=== PATIENT | male | born 1975 | race Caucasian/White ===

== ENCOUNTER 2020-09-10 10:03 | Outpatient (REF) | payer OTHER, SELFPAY | END 2020-09-10 10:04 | disposition home or self-care (01) | LOC: HO.BBR 10:03 | PROVIDERS: Visit Provider Internal Medicine | DX: Z13.89 Encounter for screening for other disorder (principal) ==

== ENCOUNTER 2020-12-17 10:12 | Outpatient (REF) | payer OTHER, SELFPAY | END 2020-12-17 10:13 | disposition home or self-care (01) | LOC: HO.BBR 10:12 | PROVIDERS: Visit Provider Internal Medicine | DX: Z13.89 Encounter for screening for other disorder (principal) ==

== ENCOUNTER 2021-03-25 10:10 | Outpatient (REF) | payer OTHER, SELFPAY | END 2021-03-25 10:11 | disposition home or self-care (01) | LOC: HO.BBR 10:10 | PROVIDERS: PCP Internal Medicine; Visit Provider Internal Medicine | DX: Z13.89 Encounter for screening for other disorder (principal) ==

== ENCOUNTER 2021-06-24 12:05 | Outpatient (REF) | payer OTHER, SELFPAY | END 2021-06-24 12:06 | disposition home or self-care (01) | LOC: HO.BBR 12:05 | PROVIDERS: Visit Provider Internal Medicine | DX: Z13.89 Encounter for screening for other disorder (principal) ==

== ENCOUNTER 2021-07-22 11:04 | Outpatient (REF) | payer OTHER, SELFPAY | END 2021-07-22 11:05 | disposition home or self-care (01) | LOC: HO.BBR 11:04 | PROVIDERS: Visit Provider Internal Medicine | DX: Z13.89 Encounter for screening for other disorder (principal) ==

== ENCOUNTER 2021-10-21 10:04 | Outpatient (REF) | payer OTHER, SELFPAY | END 2021-10-21 10:05 | disposition home or self-care (01) | LOC: HO.BBR 10:04 | PROVIDERS: Visit Provider Internal Medicine | DX: Z13.89 Encounter for screening for other disorder (principal) ==

== ENCOUNTER 2022-01-20 10:00 | Outpatient (REF) | payer OTHER, SELFPAY | END 2022-01-20 10:01 | disposition home or self-care (01) | LOC: HO.BBR 10:00 | PROVIDERS: Visit Provider Internal Medicine | DX: Z13.89 Encounter for screening for other disorder (principal) ==

== ENCOUNTER 2022-07-21 10:11 | Outpatient (REF) | payer OTHER, SELFPAY | END 2022-07-21 10:12 | disposition home or self-care (01) | LOC: HO.BBR 10:11 | PROVIDERS: Visit Provider Internal Medicine | DX: Z13.89 Encounter for screening for other disorder (principal) ==

== ENCOUNTER 2022-11-17 09:59 | Outpatient (REF) | payer OTHER, SELFPAY | END 2022-11-17 10:00 | disposition home or self-care (01) | LOC: HO.BBR 09:59 | PROVIDERS: Visit Provider Internal Medicine | DX: Z13.89 Encounter for screening for other disorder (principal) ==

== ENCOUNTER 2023-03-23 10:06 | Outpatient (REF) | payer OTHER, SELFPAY | END 2023-03-23 10:07 | disposition home or self-care (01) | LOC: HO.BBR 10:06 | PROVIDERS: PCP Internal Medicine; Visit Provider Internal Medicine | DX: Z13.89 Encounter for screening for other disorder (principal) ==

== ENCOUNTER 2023-04-11 07:53 | Outpatient (AMB) | payer OTHER, SELFPAY ==
--- NOTE | 2023-04-11 08:02 | A.OFFVIS_ITS ---
Intake Vital Signs 04/11/23 08:08 Height 6 ft Weight 293 lb 6 oz BMI 39.8 BP 138/68 Blood Pressure Location Lt brachial Position Sitting Pulse 68 Pulse Source Pulse Oximeter Pulse Oximetry (%) 98 Oxygen Delivery Method Room Air Intake Visit Reasons: E-PEER SUPPORT SPECIALIST: Sleep for CPAP - Confirmed Intake Note: NPV for Sleep states has a CPAP from [employer] Operator Required: No Allergies No Known Allergies Allergy (Verified 04/11/23 08:03) HPI HPI Comments History of Present Illness Details 47 y/o male patient presents for new in- person visit for transferring care of TWAN. Pt reports he had a sleep study around 2015 or 2016 CPAP compliance and therapy response (03/12/23-04/10/23) reviewed. He is on APAP 8-20 cmH2O. The usage days 100% and the average usage hours 7 hrs 30 min. The max pressure was 12.9 and the AHI was 0.8/hr. Pt reports he can sleep well with CPAP for 7-8 hrs and wakes up refreshed in the morning. Denies difficulty falling asleep or staying sleep. Daytime sleepiness has improved. Pt reports he gained about 25 lb over the last 3 years, started walking daily. He gets supplies and changes filter routinely. No other concerns today. [facility] Surgical History (Updated 04/11/23 @ 08:06 by Kellee Vivas CMA) History of removal of calculus of renal pelvis through percutaneous nephrostomy Hx of appendectomy Family History (Updated 04/11/23 @ 08:07 by Kellee Vivas CMA) Father Congestive heart disease Mother Breast cancer Social History (Updated 04/11/23 @ 08:08 by Kellee Vivas CMA) Alcohol intake: current Patient Tobacco Use Status: Current someday Tobacco user Review of Systems Const All systems reviewed & are unremarkable except as noted in HPI and below ENT Reports Normal hearing present Neuro Reports Normal hearing present Physical Exam Vital Signs: Last Vital Signs Pulse 68 04/11/23 08:08 BP 138/68 04/11/23 08:08 Pulse Ox 98 04/11/23 08:08 Oxygen Delivery Method Room Air 04/11/23 08:08 BMI result Body Mass Index 39.8 Const General: cooperative Nutritional Appearance: obese Orientation/consciousness: patient oriented x3 Neck Neck: Yes full ROM and Yes supple Resp Effort & Inspection: normal respiratory effort and able to speak in complete sentences Neuro General: patient oriented x3 and gait normal Cranial nerves: Yes Bilaterally intact EOM present, Yes Normal facial strength present, Yes Midline tongue present, Yes Symmetric palate elevation present, Yes Normal hearing present, Yes Ability to bilaterally rotate head present and Yes Ability to bilaterally elevate shoulders present Cognition (Neuro): normal cognition Gait exam (Neuro): Normal gait present Motor exam (neuro): 5/5 motor strength present throughout, Pronator motor function not present and no tremor noted Psych Appearance: grossly normal Mental Status: mental status grossly normal Speech and movement: Normal speech and movement present Affect: normal affect Attitude: cooperative Assessment & Plan Assessment & Plan (1) TWAN on CPAP: Code(s): G47.33 - Obstructive sleep apnea (adult) (pediatric) Plan Continue to use APAP at [id number] as patient experiences good clinical effect, sleep quality has improved and less snoring. Stressed compliance, use CPAP nighlty and more than 4 hrs. Advised patient to do daily exercise and wt reduction adivsed. Coding Level of Care Code New Pt Level 3 (45913) Diagnoses TWAN on CPAP G47.33
[2023-04-11 08:08] VITALS: BP 138/68; PULSE 68; O2SAT 98; BMI 39.8
== END 2023-04-11 08:29 | disposition home or self-care (01) ==
PROVIDERS: PCP Internal Medicine; Visit Provider Nurse Practitioner Family
DX: G47.33 Obstructive sleep apnea (adult) (pediatric) (principal)
CPT/HCPCS: 99203

== ENCOUNTER → 2023-04-11 07:53 | Outpatient (BNVA) | payer OTHER, SELFPAY | PROVIDERS: PCP Internal Medicine; Visit Provider Nurse Practitioner Family ==

== ENCOUNTER 2023-07-27 09:55 | Outpatient (REF) | payer OTHER, SELFPAY | END 2023-07-27 09:56 | disposition home or self-care (01) | LOC: HO.BBR 09:55 | PROVIDERS: PCP Internal Medicine; Visit Provider Internal Medicine | DX: Z13.89 Encounter for screening for other disorder (principal) ==

== ENCOUNTER 2023-11-23 09:59 | Outpatient (REF) | payer OTHER, SELFPAY | END 2023-11-23 10:00 | disposition home or self-care (01) | LOC: HO.BBR 09:59 | PROVIDERS: PCP Internal Medicine; Visit Provider Internal Medicine | DX: Z13.89 Encounter for screening for other disorder (principal) ==

== ENCOUNTER 2024-03-28 10:10 | Outpatient (REF) | payer OTHER, SELFPAY | END 2024-03-28 10:11 | disposition home or self-care (01) | LOC: HO.BBR 10:10 | PROVIDERS: PCP Internal Medicine; Visit Provider Internal Medicine | DX: Z13.89 Encounter for screening for other disorder (principal) ==

== ENCOUNTER 2024-05-28 09:32 | Outpatient (AMB) | payer OTHER, SELFPAY ==
--- NOTE | 2024-05-28 09:41 | A.OFFVIS_ITS ---
Vital Signs 05/28/24 09:43 Height 6 ft Weight 272 lb BMI 36.9 BP 152/90 H Blood Pressure Location Rt brachial Position Sitting Intake Visit Reasons: 1 yr f/u for Sleep Intake Note: Patient presents for 1 year follow up Allergies No Known Allergies Allergy (Verified 05/28/24 09:43) Medication List - Last Reconciled 05/28/24 by Ankur Reyes PA-C apixaban (Eliquis) 2.5 mg PO BID hydrochlorothiazide 12.5 mg PO DAILY propranolol 40 mg PO DAILY HPI Comments Details: 48 y/o male patient presents for new in-person visit for f/u of TWAN. CPAP compliance and therapy response (02/10/24-05/28/24) reviewed. He is on APAP 8-20 cmH2O. The usage days 96% and the average usage hours 7 hrs 30 min. The max pressure was 12.9 and the AHI was 0.58/hr. Pt reports he can sleep well with CPAP for 7-8 hrs and wakes up refreshed in the morning. Denies difficulty falling asleep or staying sleep. Daytime sleepiness has improved. Pt reports he lost 15lbs over the last 1 years, as he started walking daily. He gets supplies and changes water and filters routinely. His mood is good, blood pressure is elevated today, as has not taken BP meds today and gets anxious at the doctor's office. No other concerns today, would like a new machine as he is due for a study, and his machine is starting to give him technical issues. [facility] Surgical History History of removal of calculus of renal pelvis through percutaneous nephrostomy Hx of appendectomy Family History Father Congestive heart disease Mother Breast cancer Social History Alcohol intake: current Patient Tobacco Use Status: Current someday Tobacco user Physical Exam Vital Signs: Last Vital Signs BP 152/90 H 05/28/24 09:43 BMI result Body Mass Index 36.9 Const General: cooperative, comfortable and no acute distress Orientation/consciousness: patient oriented x3 HEENT Face and sinus: Yes normal facial exam and Yes face symmetric Eyes Pupils: Equal, round and reactive pupils present, Pupils normal by confrontation and Pupil accommodation reflex normal Neck Neck: Yes full ROM and Yes supple Resp Effort & Inspection: normal respiratory effort and able to speak in complete sentences Neuro General: patient oriented x3 and moves all extremities Cranial nerves: Yes CN's II-XII intact bilaterally, Yes Facial sensation intact/muscles of mastication intact, Yes Equal, round and reactive pupils present, Yes Normal facial strength present, Yes Midline tongue present, Yes Symmetric palate elevation present, Yes Ability to bilaterally rotate head present and Yes Ability to bilaterally elevate shoulders present Motor exam (neuro): 5/5 motor strength present throughout Deep tendon reflexes (DTR's): Right triceps reflex intensity grade: 2+, Left triceps reflex intensity grade: 2+, Rt Biceps (C5, C6): 2+, Left biceps reflex intensity grade: 2+, Right brachioradialis reflex intensity grade: 2+, Left brachioradialis reflex intensity grade: 2+, Right patellar reflex intensity grade: 2+, Left patellar reflex intensity grade: 2+, Right ankle reflex intensity grade: 2+ and Left ankle reflex intensity grade: 2+ Coordination: [id number] test normal Psych Insight: Good insight present (Psych) Judgement: Good judgement present (Psych) Assessment & Plan Assessment & Plan (1) TWAN on CPAP: Code(s): G47.33 - Obstructive sleep apnea (adult) (pediatric) Category: Medical Plan Continue to use APAP at [id number] as patient experiences good clinical effect, sleep quality has improved. Stressed compliance, use CPAP nightly and for more than 4 hrs as tolerated. Discussed patient to do daily exercise and weight reduction advised. Per insurance requirement HST for new CPAP machine. Orders: Orders RT home sleep study Today G47.33 - Obstructive sleep apnea (adult) (pediatric) Coding Level of Care Code Est Pt Level 3 (43700) Diagnoses TWAN on CPAP G47.33
[2024-05-28 09:43] VITALS: BP 152/90; BMI 36.9
== END 2024-05-28 10:13 | disposition home or self-care (01) ==
PROVIDERS: Absent Provider Psychiatry & Neurology Neurology; PCP Internal Medicine; Visit Provider Physician Assistant Medical
DX: G47.33 Obstructive sleep apnea (adult) (pediatric) (principal)
CPT/HCPCS: 99213

== ENCOUNTER → 2024-05-28 09:32 | Outpatient (BNVA) | payer OTHER, SELFPAY | PROVIDERS: Absent Provider Psychiatry & Neurology Neurology; PCP Internal Medicine; Visit Provider Physician Assistant Medical ==

== ENCOUNTER 2024-08-01 09:57 | Outpatient (REF) | payer OTHER, SELFPAY | END 2024-08-01 09:58 | disposition home or self-care (01) | LOC: HO.BBR 09:57 | PROVIDERS: PCP Internal Medicine; Visit Provider Internal Medicine | DX: Z13.89 Encounter for screening for other disorder (principal) ==

== ENCOUNTER 2024-11-28 09:54 | Outpatient (REF) | payer OTHER, SELFPAY ==
--- OUTSIDE RECORDS SUMMARY | 2024-11-28 10:07 | XMS_ITS | Clinical Summary ---
Author Organization [address] [facility] Address [address] [place] [address] Phone Care Team Providers Care Machine Strap Buckler Name Role Phone Caleb Bird DO Primary Care Provider [phone] Allergies No known active allergies Medications apixaban (ELIQUIS) 2.5 mg tablet Take 1 tablet (2.5 mg total) by mouth 2 (two) times a day. Active hydrOXYzine HCL (ATARAX) 10 mg tablet Take 1 tablet (10 mg total) by mouth daily as needed for itching or anxiety. - Oral Active ketoconazole (NIZORAL) 2 % cream APPLY CREAM TWICE A DAY EXTERNALLY 8 Active propranoloL (INDERAL) 40 mg tablet Take 1 tablet (40 mg total) by mouth 3 (three) times a day. Active Active Problems Problem Noted Date Diagnosed Date Nephrolithiasis 12/16/2020 Prothrombin gene mutation (CMS/HCC V24) 12/25/19 20 Pulmonary embolus (CMS/HCC V24, CMS/HCC V28) Hereditary hemochromatosis (CMS/HCC V24) 017 Surgical History Surgery Date Site/Laterality Comments APPENDECTOMY PROCEDURE:APPENDECTOMY Medical History Medical History Date Comments Hemochromatosis DX:Hemochromatos is DVT (deep venous thrombosis) (CMS/HCC V24, CMS/HCC V28) DX:DVT (deep venous thrombos is) (HCC) Hereditary hemochromatosis ( CMS/HCC V24) 05/16/2017 DX:Hereditary hemochromatosi s (HCC) Family History Medical History Relation Name Comments Hemochromatosis Brother Hemochromatosis Father Cancer Mother breast Hemochromatosis Mother Cancer Mother's Sister breast Relation Name Status Comments Brother Alive Father Mother Mother's Sister Social History Tobacco Use Types Packs/Day Years Used Date Smoking Tobacco: Every Day Cigarettes Smokeless Tobacco: Never Alcohol Use Standard Drinks/Week Comments Yes 0 (1 standard drink = 0.6 oz pur e alcohol) Sex and Gender Information Value Date Recorded Sex Assigned at Not on file Legal Sex Male 3:58 PM EST Gender Identity Not on file Sexual Orientation Not on file Obstetrics History Last Filed Vital Signs Vital Sign Reading Time Taken Comments Blood Pressure 126/76 12/17/2023 9:23 AM EDT Sit ting Left arm Pulse 58 12/17/2023 9:23 AM EDT Temperature - - Respiratory Rate - - Oxygen Saturation - - Inhaled Oxygen Concentration - - Weight 131 kg (288 lb) 12/17/2023 9:23 AM EDT Height 182.9 cm (6') 12/16/2021 9:29 AM EDT Body Mass Index 39.06 12/16/2021 9:29 AM EDT Plan of Treatment Upcoming Encounters Date Type Department Care Team (Late st Contact Info) Description 12/16/2024 9:00 AM EDT Office Visit [facility] Hematology Oncology [address] [place] [address] Magdalena-Gilda Callahan MD [address] [place] [address] Health Maintenance Due Date Last Done Comments Diabetes: Annual Foot Exam 1983 Diabetes: Annual Retina Eye Exam 1983 DTaP,Tdap,and Td Vaccines (1 - Tdap) 1992 Hepatitis B Vaccines (1 of 3 - 19+ 3-dose series) 1992 Pneumococcal Vaccine: 50+ Years (1 of 2 - PCV) 1992 Pneumococcal Vaccine: Pediatrics (0 to 5 Years) and At-Risk Patients (6 to 64 Years) (1 of 2 - PCV) 1992 Depression Screening 06/18/2022 HIV Screening 06/18/2022 Hepatitis C Screening 06/18/2022 Social Influencers of Health Screening 06/18/2022 Zoster Vaccines (1 of 2) 2023 COVID-19 Vaccine (2023-2 5 season) 2024 07/26/2021, 11/08/2020, 10/18/2020 Colorectal Cancer Screening: FIT-DNA (Cologuard) 08/03/2024 08/03/2021, 08/03/2021, 08/03/2021 Diabetes: Annual Urine Albumin-Creatinine Ratio (uACR) 09/25/2024 Influenza Vaccine (Season Ended) 2025 07/18/2022 Diabetes: Blood Sugar Contro l Test (HGBA1C) 03/28/2025 09/25/2024 Diabetes: Annual GFR (Glomerular Filtration Rate) 09/25/2025 09/25/2024 Hypertension/CHF/CAD Annual BMP Blood Test 09/25/2025 09/25/2024 Cholesterol Screening (Lipid Panel) 09/25/2029 09/25/2024 HIB Vaccines Aged Out No longer eligi ble based on patient's age to complete this topic HPV Vaccines Aged Out No longer eligi ble based on patient's age to complete this topic Hepatitis A Vaccines Aged Out No long er eligible based on patient's age to complete this topic IPV Vaccines Aged Out No longer eligi ble based on patient's age to complete this topic MMR Vaccines Aged Out No longer eligi ble based on patient's age to complete this topic Meningococcal ACWY Vaccine Aged Out N o longer eligible based on patient's age to complete this topic Meningococcal B Vaccine Aged Out No l onger eligible based on patient's age to complete this topic RSV Immunization Patients Under 20 months Aged Out No longer eligible b ased on patient's age to complete this topic Varicella Vaccines Aged Out No longer eligible based on patient's age to complete this topic Procedures Procedure Name Priority Date/Time Associated Diagnosis Comments THYROXINE FREE Routine 09/25/2024 8:43 AM EDT HTN (hypertension) HLD (hyperlipidemia) Obesity DVT (deep vein thrombosis) in PE (physical exam), annual DM2 (diabetes mellitus, type 2) ([facility]/HCC V24, [facility] V28) Elevated TSH CBC WITH AUTO DIFFERENTIAL Routine 09/25/2024 8:43 AM EDT HTN (hypertension) HLD (hyperlipidemia) Obesity DVT (deep vein thrombosis) in PE (physical exam), annual DM2 (diabetes mellitus, type 2) (CMS/HCC V24, CMS/HCC V28) HEMOGLOBIN A1C Routine 09/25/2024 8:43 AM EDT HTN (hypertension) HLD (hyperlipidemia) Obesity DVT (deep vein thrombosis) in PE (physical exam), annual DM2 (diabetes mellitus, type 2) ([facility]/HCC V24, CMS/HCC V28) COMPREHENSIVE METABOLIC PANEL Routine 09/25/2024 8:43 AM EDT HTN (hypertension) HLD (hyperlipidemia) Obesity DVT (deep vein thrombosis) in PE (physical exam), annual DM2 (diabetes mellitus, type 2) (CMS/HCC V24, CMS/HCC V28) CBC AND DIFFERENTIAL Routine 09/25/2024 8:43 AM EDT HTN (hypertension) HLD (hyperlipidemia) Obesity DVT (deep vein thrombosis) in PE (physical exam), annual DM2 (diabetes mellitus, type 2) (CMS/HCC V24, CMS/[facility] V28) THYROID STIMULATING HORMONE Routine 09/25/2024 8:43 AM EDT HTN (hypertension) HLD (hyperlipidemia) Obesity DVT (deep vein thrombosis) in PE (physical exam), annual DM2 (diabetes mellitus, type 2) (CMS/HCC V24, CMS/[facility] V28) PROSTATE SPECIFIC ANTIGEN SCREEN Routine 09/25/2024 8:43 AM EDT HTN (hypertension) HLD (hyperlipidemia) Obesity DVT (deep vein thrombosis) in PE (physical exam), annual DM2 (diabetes mellitus, type 2) (CMS/HCC V24, CMS/HCC V28) LIPID PANEL WITH REFLEX TO DIRECT LDL Routine 09/25/2024 8:43 AM EDT HTN (hypertension) HLD (hyperlipidemia) Obesity DVT (deep vein thrombosis) in PE (physical exam), annual DM2 (diabetes mellitus, type 2) (CMS/HCC V24, CMS/HCC V28) HM FIT-DNA Routine 08/03/2021 from Last 3 Months or Most Recently Relevant to Health Maintenance Results * Prostate specific antigen screen (09/25/2024 8:43 AM EDT) Pathologist [facility] PSA 3.07 0.00 - 4.00 ng/mL LAB CHEMISTRY METHOD 09/25/2024 11:44 AM EDT [facility] Blood Venous blood specimen / Unknown Venipuncture / Unknown 09/25/2024 8:43 AM EDT 09/25/2024 8:43 AM EDT Narrative [facility] - 09/25/2024 11:44 AM EDT The Siemens Advia Canaryaur Chemiluminescent Immunoassay is used. Results obtained with different assay methods or kits cannot be used interchangeably. Results cannot be interpreted as absolute evidence of the presence or absence of malignant disease. [facility] LAB BLOOD ORDERABLES Final Resul t [facility] [address] [place] [address], * (ABNORMAL) Lipid panel with reflex to direct LDL (09/25/2024 8:43 AM EDT) [facility] Cholesterol 164 0 - 200 mg/dL LAB CHEMISTRY METHOD 09/25/2024 11:40 AM EDT [facility] Triglycerides 123 0 - 150 mg/dL LAB CHEMISTRY METHOD 09/25/2024 11:40 AM EDT [facility] HDL 35(L) >=40 mg/dL LAB CHEMISTRY METHOD 09/25/2024 11:40 AM EDT [facility] LDL Calculated 104(H) 0 - 100 mg/dL LAB CHEMISTRY METHOD 09/25/2024 11:40 AM EDT [facility] VLDL Cholesterol Cody 24.6 mg/dL LAB CHEMISTRY METHOD 09/25/2024 11:40 AM EDT [facility] Non HDL Chol. (LDL+VLDL) 129 <145 mg/dL LAB CHEMISTRY METHOD 09/25/2024 11:40 AM EDT [facility] Chol/HDL Ratio 4.7(H) 0.0 - 4.4 LAB CHEMISTRY METHOD 09/25/2024 11:40 AM [facility] Blood Venous blood specimen / Unknown Venipuncture / Unknown 09/25/2024 8:43 AM EDT 09/25/2024 8:[address] [facility] LAB BLOOD ORDERABLES Final Resul t [facility] [address] [place] [address], * CBC auto differential (09/25/2024 8:43 AM EDT) WBC 5.4 4.8 - 10.8 K/mcL LAB HEMETOLOGY METHOD 09/25/2024 11:23 AM [facility] RBC 4.90 4.50 - 5.50 M/mcL LAB HEMETOLOGY METHOD 09/25/2024 11:23 AM [facility] Hemoglobin 15.2 13.5 - 17.5 g/dL LAB HEMETOLOGY METHOD 09/25/2024 11:23 AM [facility] Hematocrit 44.6 42.0 - 54.0 % LAB HEMETOLOGY METHOD 09/25/2024 11:23 AM [facility] MCV 91.2 79.0 - 98.0 FL LAB HEMETOLOGY METHOD 09/25/2024 11:23 AM [facility] MCH 31.1 27.0 - 32.0 pcg LAB HEMETOLOGY METHOD 09/25/2024 11:23 AM [facility] MCHC 34.1 32.0 - 37.0 g/dL LAB HEMETOLOGY METHOD 09/25/2024 11:23 AM [facility] RDW 12.7 11.0 - 15.0 % LAB HEMETOLOGY METHOD 09/25/2024 11:23 AM [facility] Platelets 236 130 - 400 K/mcL LAB HEMETOLOGY METHOD 09/25/2024 11:23 AM [facility] MPV 10.4 7.0 - 11.0 FL LAB HEMETOLOGY METHOD 09/25/2024 11:23 AM [facility] NRBC 0.0 <1.0 % LAB HEMETOLOGY METHOD 09/25/2024 11:23 AM [facility] NRBC Absolute 0.00 <0.10 K/mcL LAB HEMETOLOGY METHOD 09/25/2024 11:23 AM [facility] Neutrophils Relative 58.8 % LAB HEMETOLOGY METHOD 09/25/2024 11:23 AM [facility] Lymphocytes Relative 29.1 % LAB HEMETOLOGY METHOD 09/25/2024 11:23 AM [facility] Monocytes Relative 9.8 % LAB HEMETOLOGY METHOD 09/25/2024 11:23 AM [facility] Eosinophils Relative 1.3 % LAB HEMETOLOGY METHOD 09/25/2024 11:23 AM [facility] Basophils Relative 0.6 % LAB HEMETOLOGY METHOD 09/25/2024 11:23 AM [facility] Immature Granulocytes Relative 0.4 % LAB HEMETOLOGY METHOD 09/25/2024 11:23 AM [facility] Neutrophils Absolute 3.17 1.50 - 7.00 K/mcL LAB HEMETOLOGY METHOD 09/25/2024 11:23 AM [facility] Lymphocytes Absolute 1.57 1.00 - 5.00 K/mcL LAB HEMETOLOGY METHOD 09/25/2024 11:23 AM [facility] Monocytes Absolute 0.53 0.20 - 1.00 K/[facility] LAB HEMETOLOGY METHOD 09/25/2024 11:23 AM EDT [facility] Eosinophils Absolute 0.07 0.00 - 0.50 K/[facility] LAB HEMETOLOGY METHOD 09/25/2024 11:23 AM EDT [facility] Basophils Absolute 0.03 0.00 - 0.20 K/[facility] LAB HEMETOLOGY METHOD 09/25/2024 11:23 AM EDT [facility] Immature Granulocytes Absolute 0.02 0.00 - 0.03 K/[facility] LAB HEMETOLOGY METHOD 09/25/2024 11:23 AM EDT [facility] Blood Venous blood specimen / Unknown Venipuncture / Unknown 09/25/2024 8:43 AM EDT 09/25/2024 8:[address] [facility] LAB BLOOD ORDERABLES Final Resul t [facility] [address] [place] [address], [place] [phone] * (ABNORMAL) Thyroid stimulating hormone (09/25/2024 8:43 AM EDT) TSH 4.50(H) 0.40 - 4.00 mcIU/mL LAB CHEMISTRY METHOD 09/25/2024 11:45 AM EDT [facility] Blood Venous blood specimen / Unknown Venipuncture / Unknown 09/25/2024 8:43 AM EDT 09/25/2024 8:[address] [facility] LAB BLOOD ORDERABLES Final Resul t [facility] [address] [place] [address], [place] [phone] * Thyroxine free (09/25/2024 8:43 AM EDT) [facility] Free T4 1.10 0.70 - 1.80 ng/dL LAB CHEMISTRY METHOD 09/29/2024 10:46 AM EDT [facility] Blood Venous blood specimen / Unknown Venipuncture / Unknown 09/25/2024 8:43 AM EDT 09/25/2024 8:[address] [facility] LAB BLOOD ORDERABLES Final Resul t Performing Organization Address [facility] Co de Phone Number [facility] [address] [place] [address], [place] [phone] * Hemoglobin A1c (09/25/2024 8:43 AM EDT) [facility] Hemoglobin A1C 6.0 <6.5 % LAB CHEMISTRY METHOD 09/25/2024 1:57 PM EDT [facility] Mean Bld Glu Estim. 126 mg/dL LAB CHEMISTRY METHOD 09/25/2024 1:57 PM EDT [facility] Blood Venous blood specimen / Unknown Venipuncture / Unknown 09/25/2024 8:43 AM EDT 09/25/2024 8:[address] [facility] LAB BLOOD ORDERABLES Final Resul t Performing Organization Address [facility]/ZIP Co de Phone Number [facility] [address] [place] [address], [place] [phone] * (ABNORMAL) Comprehensive metabolic panel (09/25/2024 8:43 AM EDT) [facility] Sodium 138 133 - 145 mmol/L LAB CHEMISTRY METHOD 09/25/2024 11:40 AM EDT [facility] Potassium 4.2 3.5 - 5.5 mmol/L LAB CHEMISTRY METHOD 09/25/2024 11:40 AM EDT [facility] Chloride 106 96 - 110 mmol/L LAB CHEMISTRY METHOD 09/25/2024 11:40 AM [facility] CO2 25 21 - 32 mmol/L LAB CHEMISTRY METHOD 09/25/2024 11:40 AM [facility] Anion Gap 7 3 - 11 LAB CHEMISTRY METHOD 09/25/2024 11:40 AM [facility] Glucose 140(H) 70 - 100 mg/dL LAB CHEMISTRY METHOD 09/25/2024 11:40 AM [facility] BUN 15 5 - 25 mg/dL LAB CHEMISTRY METHOD 09/25/2024 11:40 AM [facility] Creatinine 1.09 0.70 - 1.30 mg/dL LAB CHEMISTRY METHOD 09/25/2024 11:40 AM [facility] eGFR 82 >=60 mL/min/1. 73m2 LAB CHEMISTRY METHOD 09/25/2024 11:40 AM [facility] Comment:Calculation based on the??Chronic Kidney Disease Epidemiology Collaboration (CKD-EPI) equation refit??without adjustment for race. BUN/Creatinine Ratio 13.8 LAB CHEMISTRY METHOD 09/25/2024 11:40 AM [facility] Calcium 9.1 8.5 - 10.5 mg/dL LAB CHEMISTRY METHOD 09/25/2024 11:40 AM [facility] AST (SGOT) 15 10 - 42 unit/L LAB CHEMISTRY METHOD 09/25/2024 11:40 AM [facility] ALT (SGPT) 27 10 - 60 unit/L LAB CHEMISTRY METHOD 09/25/2024 11:40 AM [facility] Alkaline Phosphatase 50 42 - 121 unit/L LAB CHEMISTRY METHOD 09/25/2024 11:40 AM [facility] Total Protein 7.1 6.0 - 8.0 g/dL LAB CHEMISTRY METHOD 09/25/2024 11:40 AM [facility] Albumin 3.8 3.2 - 5.0 g/dL LAB CHEMISTRY METHOD 09/25/2024 11:40 AM EDT [facility] Total Bilirubin 0.6 0.0 - 1.4 mg/dL LAB CHEMISTRY METHOD 09/25/2024 11:40 AM EDT [facility] Blood Venous blood specimen / Unknown Venipuncture / Unknown 09/25/2024 8:43 AM EDT 09/25/2024 8:[address] [facility] LAB BLOOD ORDERABLES Final Resul t [facility] ([facility] [address] [place] [address], * FIT-DNA (Cologuard) (08/03/2021) Pathologist [facility] Colorectal Cancer Screening: FIT-DNA (Cologuard) abstracted,no interpretation Historical Provider HEALTH MAINTENANCE Final Result from Last 3 Months or Most Recently Relevant to Health Maintenance Insurance [facility] Care Teams Machine Strap Buckler Relationship Specialty Start Date End Date aCleb Bird DO [address] [place] [phone] PCP - General Internal Medicine 05/16/17
== END 2024-11-28 09:55 | disposition home or self-care (01) ==
LOC: HO.BBR 09:54
PROVIDERS: PCP Internal Medicine; Visit Provider Internal Medicine
DX: Z13.89 Encounter for screening for other disorder (principal)

== ENCOUNTER 2025-01-14 09:07 | Outpatient (AMB) | payer OTHER, SELFPAY ==
[2025-01-14 09:09] VITALS: BP 110/72; PULSE 59; O2SAT 97; BMI 38.6
--- NOTE | 2025-01-14 09:09 | MHC.OFFVIS ---
Vital Signs 01/14/25 09:09 Height 6 ft Weight 285 lb BMI 38.6 BP 110/72 Blood Pressure Location Rt brachial Position Sitting Pulse 59 Pulse Source Pulse Oximeter Pulse Oximetry (%) 97 Oxygen Delivery Method Room Air Intake Visit Reasons: Follow up Intake Note: Patient presents follow up TWAN. Compliance in chart(81/90 days, >=4hrs- 89%, Average usage-6hrs 55min, Med pressure 9.5, Med Leaks 11.5, AHI-0.6) Jumpbasting Collar Baster Required: No Accompanied by: Self / Same As Patient Allergies No Known Allergies Allergy (Verified 01/14/25 09:14) HPI Comments Details: 49 y/o male patient presents for follow up visit of TWAN. CPAP compliance and therapy response (10/07/2024-01/06/2025) reviewed. He is on APAP 8-20 cmH2O. The usage days 98% and the average usage hours 7 hrs 41 min. Therapy pressure 9.6qnF25-82.7cmH20 and the AHI was 0.6/hr Pt reports he sleeps well with the CPAP for about 7-8 hrs and wakes up refreshed in the morning. Denies difficulty falling asleep or staying sleep. Daytime sleepiness and brain fog has improved significantly. Memory is stable. Denies headaches, denies RLS symptoms. He has hemachromatosis and is followed by hematology. Pt reports his blood pressure has improved since starting Propranolol, and his anxiety is better managed also. He gets worked up about his job, and he is learning better strategies to cope with complex situations. His mood is good, he takes Propranolol for panic attacks which are provoked by driving on highways, so he avoids highways. No other concerns today, would like a new machine as his machine is over 5 years old and very loud. He washes his mask, hoses, replaces filters and fills the reservoir with water daily. He requests supplies and filters routinely. [facility] Surgical History History of removal of calculus of renal pelvis through percutaneous nephrostomy Hx of appendectomy Family History Father Congestive heart disease Mother Breast cancer Social History Alcohol intake: current Patient Tobacco Use Status: Current someday Tobacco user Physical Exam Vital Signs: Last Vital Signs Pulse 59 01/14/25 09:09 BP 110/72 01/14/25 09:09 Pulse Ox 97 01/14/25 09:09 Oxygen Delivery Method Room Air 01/14/25 09:09 BMI result Body Mass Index 38.6 Const General: cooperative, comfortable and no acute distress Orientation/consciousness: patient oriented x3 HEENT Face and sinus: Yes normal facial exam and Yes face symmetric Eyes Pupils: Equal, round and reactive pupils present, Pupils normal by confrontation and Pupil accommodation reflex normal Neck Neck: Yes full ROM and Yes supple Resp Effort & Inspection: normal respiratory effort and able to speak in complete sentences Neuro General: patient oriented x3 and moves all extremities Cranial nerves: Yes CN's II-XII intact bilaterally, Yes Facial sensation intact/muscles of mastication intact, Yes Equal, round and reactive pupils present, Yes Normal facial strength present, Yes Midline tongue present, Yes Symmetric palate elevation present, Yes Ability to bilaterally rotate head present and Yes Ability to bilaterally elevate shoulders present Motor exam (neuro): 5/5 motor strength present throughout Psych Insight: Good insight present (Psych) Judgement: Good judgement present (Psych) Results Reviewed Results Reviewed: TWAN compliance report 10/2024 -01/2025. Patient presents follow up TWAN. Compliance in chart(81/90 days, >=4hrs- 89%, Average usage-6hrs 55min, Med pressure 9.5, Med Leaks 11.5, AHI-0.6) Assessment & Plan Assessment & Plan (1) TWAN on CPAP: Code(s): G47.33 - Obstructive sleep apnea (adult) (pediatric) Category: Medical Plan: continue cpap (2) Obesity (BMI 30-39.9): Code(s): E66.9 - Obesity, unspecified Category: Medical (3) Panic attacks: Code(s): F41.0 - Panic disorder [episodic paroxysmal anxiety] Category: Medical Plan Continue to use APAP at [id number] as patient experiences good clinical effect, sleep quality has improved. BMI is elevated discussed lifestyle and diet changes along with daily exercise to improve weight reduction. Insurance denited HST for new cpap machine will try again in 6 months, as his machine is very loud. Panic attacks, continue to avoid triggers, start CBT and continue Prpranolol 40mg po daily. f/u in 6 monhts. Patient Instructions: Sleep Hygiene provided: set a scheduled bedtime and wake time to help regulate the circadian rhythm and balance the release of pituitary hormones. Sleep in a dark room, temperatures below 68 degrees, and no devices n bed. Limit caffeinated products 6 hours prior to bed, and limit fluids 2-4 hours prior to bed. Gentle night yoga, diffusing essential oils, and playing soft music can be relaxing. Coding Level of Care Code Est Pt Level 4 (59795) Diagnoses TWAN on CPAP G47.33 Obesity (BMI 30-39.9) E66.9 Panic attacks F41.0 Time Spent (min) 20 Comment sleep compliance improvig
--- OUTSIDE RECORDS SUMMARY | 2025-01-14 09:23 | XMS_ITS | Clinical Summary ---
Author Organization [facility] Address [address] [place] [address] Care Team Providers Care Airplane Dispatch Clerk Name Role Phone Caleb Bird DO Primary Care Provider [phone] Allergies No known active allergies Medications Medication Sig Dispensed Refills Start Date End Date Status apixaban (ELIQUIS) 2.5 MG TABS tablet Take 1 tablet (2.5 mg total) by mouth 2 (two) times a day. 0 Active propranolol (INDERAL) 40 MG tablet Take 1 tablet (40 mg total) by mouth 3 (three) times a day. 0 Active hydroCHLOROthiazide (MICROZIDE) 12.5 MG capsule Take 1 capsule (12.5 mg total) by mouth daily. 0 Active Active Problems Problem Noted Date Diagnosed Date Nephrolithiasis 12/16/2020 Pulmonary embolus 12/25/2019 Prothrombin gene mutation 12/25/2019 Hereditary hemochromatosis 05/16/2017 Family History Medical History Relation Name Comments Hemochromatosis Brother Hemochromatosis Father Cancer Maternal Aunt breast Cancer Mother breast Hemochromatosis Mother Relation Name Status Comments Brother Alive Father Maternal Aunt Mother Social History Tobacco Use Types Packs/Day Years Used Date Smoking Tobacco: Every Day Cigarettes 0.3 Smokeless Tobacco: Never Alcohol Use Standard Drinks/Week Comments Yes 0 (1 standard drink = 0.6 oz pur e alcohol) social Sex and Gender Information Value Date Recorded Sex Assigned at Not on file Gender Identity Not on file Sexual Orientation Not on file Job Start Date Occupation Industry Not on file Not on file Not on file Last Filed Vital Signs Vital Sign Reading Time Taken Comments Blood Pressure 126/76 12/17/2023 9:23 AM EDT Pulse 58 12/17/2023 9:23 AM EDT Temperature 36.6 C (97.9 F) 12/17/2023 9:23 AM EDT Respiratory Rate - - Oxygen Saturation 98% 12/17/2023 9:23 AM EDT Inhaled Oxygen Concentration - - Weight 130.6 kg (288 lb) 12/17/2023 9:23 AM EDT Height 182.9 cm (6') 12/16/2021 9:29 AM EDT Body Mass Index 39.06 12/16/2021 9:29 AM EDT Plan of Treatment Health Maintenance Due Date Last Done Comments Hepatitis B Vaccines (1 of 3 - 3-dose series) 1973 Hepatitis C Screening 1973 COVID-19 Vaccine (#1) 02/23/1974 Pneumococcal Vaccine (1 of 2 - PCV) 1979 Depression Screening 1985 Preventative Health Evaluation 1991 Tobacco Cessation Counseling 1991 DTap / Tdap / Td (1 - Tdap) 1992 Colon Cancer Screening (Colonoscopy) 2018 Shingrix-Zoster Vaccine (1 of 2) 2023 Influenza Vaccine (#1) 2025 RSV Ped < 20 months Aged Out No longe r eligible based on patient's age to complete this topic Care Teams Airplane Dispatch Clerk Relationship Specialty Start Date End Date Caleb Bird DO [address] [place] [address] [address] [place] [address] PCP - General Internal Medicine 05/16/17
--- OUTSIDE RECORDS SUMMARY | 2025-01-14 09:23 | XMS_ITS | Clinical Summary ---
Author Organization [facility] Address [address] [place] [address] Phone Care Team Providers Care Lottery Manager Name Role Phone Caleb Bird DO Primary Care Provider [phone] Allergies No known active allergies Medications apixaban (ELIQUIS) 2.5 mg tablet Take 1 tablet (2.5 mg total) by mouth 2 (two) times a day. Active propranoloL (INDERAL) 40 mg tablet Take 1 tablet (40 mg total) by mouth 3 (three) times a day. Active ketoconazole (NIZORAL) 2 % cream APPLY CREAM TWICE A DAY EXTERNALLY 10/18/19 18 025 Discontinued Active Problems Problem Noted Date Diagnosed Date Nephrolithiasis 12/16/2020 Prothrombin gene mutation (CMS/HCC V24) 12/25/19 20 Pulmonary embolus (CMS/HCC V24, CMS/HCC V28) Hereditary hemochromatosis (CMS/HCC V24) 017 Encounters Date Type Department Care Team Description 12/16/2024 9:00 AM EDT Office Visit [facility] Hematology Oncology [address] [place] [address] Gilda Ellis MD Hereditary hemochromatosis (CMS/HCC V24) (Primary Dx); Other acute pulmonary embolism without acute cor pulmonale (CMS/HCC V24, CMS/HCC V28); Prothrombin gene mutation (CMS/HCC V24) from Last 3 Months Surgical History Surgery Date Site/Laterality Comments APPENDECTOMY [...] Tobacco: Every Day Cigarettes Smokeless Tobacco: Never Tobacco Cessation:Ready to Q uit: Not Asked; Counseling Given: Not Answered Alcohol Use Standard Drinks/Week Comments Yes 0 (1 standard drink = 0.6 oz pur e alcohol) Sex and Gender Information Value Date Recorded Sex Assigned at Not on file Legal Sex Male 3:58 PM EST Gender Identity Not on file Sexual Orientation Not on file Obstetrics History Last Filed Vital Signs Vital Sign Reading Time Taken Comments Blood Pressure 122/74 12/16/2024 9:11 AM EDT Pulse 53 12/16/2024 9:11 AM EDT Temperature 36.3 C (97.4 F) 12/16/2024 9:11 AM EDT Respiratory Rate - - Oxygen Saturation 98% 12/16/2024 9:11 AM EDT Inhaled Oxygen Concentration - - Weight 131 kg (288 lb) 12/16/2024 9:11 AM EDT Height 182.9 cm (6') 12/16/2024 9:11 AM EDT Body Mass Index 39.06 12/16/2024 9:11 AM EDT Plan of Treatment Upcoming Encounters Date Type Department Care Team (Late st Contact Info) Description 12/16/2025 9:00 AM EDT Office Visit [facility] Hematology Oncology [address] [place] [address] Magdalena-Gilda Callahan MD [address] [place] [address] Health Maintenance Due Date Last Done Comments DTaP,Tdap,and Td Vaccines (1 - Tdap) 1992 Hepatitis B Vaccines (1 of 3 - 19+ 3-dose series) 1992 Pneumococcal Vaccine: 50+ Years (1 of 2 - PCV) 1992 Pneumococcal Vaccine: Pediatrics (0 to 5 Years) and At-Risk Patients (6 to 49 Years) (1 of 2 - PCV) 1992 Depression Screening 06/18/2022 HIV Screening 06/18/2022 Hepatitis C Screening 06/18/2022 Social Influencers of Health Screening 06/18/2022 Zoster Vaccines (1 of 2) 2023 COVID-19 Vaccine ( season) 2024 07/26/2021, 11/08/2020, 10/18/2020 Influenza Vaccine (#1) 2025 07/18/2022 Hypertension/CHF/CAD Annual BMP Blood Test 12/16/2025 12/16/2024, 09/25/2024 Colorectal Cancer Screening: FIT-DNA (Cologuard) 10/04/2027 10/03/2024, 10/03/2024, 08/03/2021, Additional history exists Cholesterol Screening (Lipid Panel) 09/25/2029 09/25/2024 HIB [...] 20 months Aged Out No longer eligible based on patient's age to complete this topic Varicella Vaccines Aged Out No longer eligible based on patient's age to complete this topic Procedures Procedure Name Priority Date/Time Associated Diagnosis Comments CBC WITH AUTO DIFFERENTIAL Routine 12/16/2024 9:40 AM EDT Hereditary hemochromatosis ([facility]/HCC V24) IRON AND TIBC Routine 12/16/2024 9:40 AM EDT Hereditary hemochromatosis ([facility]/HCC V24) FERRITIN Routine 12/16/2024 9:40 AM EDT Hereditary hemochromatosis ([facility]/HCC V24) CBC AND DIFFERENTIAL Routine 12/16/2024 9:40 AM EDT Hereditary hemochromatosis ([facility] V24) COMPREHENSIVE METABOLIC PANEL Routine 12/16/2024 9:40 AM EDT Hereditary hemochromatosis ([facility] V24) LIPID PANEL WITH REFLEX TO DIRECT LDL Routine 09/25/2024 8:43 AM EDT HTN (hypertension) HLD (hyperlipidemia) Obesity DVT (deep vein thrombosis) in PE (physical exam), annual DM2 (diabetes mellitus, type 2) ([facility] V24, [facility] V28) HM FIT-DNA Routine 08/03/2021 from Last 3 Months or Most Recently Relevant to Health Maintenance Results * CBC auto differential (12/16/2024 9:40 AM EDT) WBC 5.2 4.8 - 10.8 K/mcL LAB HEMETOLOGY METHOD 12/16/2024 1:02 PM [facility] RBC 4.90 4.50 - 5.50 M/mcL LAB HEMETOLOGY METHOD 12/16/2024 1:02 PM [facility] Hemoglobin 15.0 13.5 - 17.5 g/dL LAB HEMETOLOGY METHOD 12/16/2024 1:02 PM [facility] Hematocrit 43.8 42.0 - 54.0 % LAB HEMETOLOGY METHOD 12/16/2024 1:02 PM [facility] MCV 90.1 79.0 - 98.0 FL LAB HEMETOLOGY METHOD 12/16/2024 1:02 PM [facility] MCH 30.9 27.0 - 32.0 pcg LAB HEMETOLOGY METHOD 12/16/2024 1:02 PM [facility] MCHC 34.2 32.0 - 37.0 g/dL LAB HEMETOLOGY METHOD 12/16/2024 1:02 PM [facility] RDW 12.9 11.0 - 15.0 % LAB HEMETOLOGY METHOD 12/16/2024 1:02 PM [facility] Platelets 223 130 - 400 K/mcL LAB HEMETOLOGY METHOD 12/16/2024 1:02 PM [facility] MPV 10.3 7.0 - 11.0 FL LAB HEMETOLOGY METHOD 12/16/2024 1:02 PM [facility] NRBC 0.0 <1.0 % LAB HEMETOLOGY METHOD 12/16/2024 1:02 PM [facility] NRBC Absolute 0.00 <0.10 K/mcL LAB HEMETOLOGY METHOD 12/16/2024 1:02 PM [facility] Neutrophils Relative 58.9 % LAB HEMETOLOGY METHOD 12/16/2024 1:02 PM [facility] Lymphocytes Relative 27.6 % LAB HEMETOLOGY METHOD 12/16/2024 1:02 [facility] Monocytes Relative 10.0 % LAB HEMETOLOGY METHOD 12/16/2024 1:02 PM [facility] Eosinophils Relative 2.5 % LAB HEMETOLOGY METHOD 12/16/2024 1:02 PM [facility] Basophils Relative 0.8 % LAB HEMETOLOGY METHOD 12/16/2024 1:02 PM [facility] Immature Granulocytes Relative 0.2 % LAB HEMETOLOGY METHOD 12/16/2024 1:02 PM [facility] Neutrophils Absolute 3.05 1.50 - 7.00 K/mcL LAB HEMETOLOGY METHOD 12/16/2024 1:02 PM EDT [facility] Lymphocytes Absolute 1.43 1.00 - 5.00 K/mcL LAB HEMETOLOGY METHOD 12/16/2024 1:02 PM EDT [facility] Monocytes Absolute 0.52 0.20 - 1.00 K/mcL LAB HEMETOLOGY METHOD 12/16/2024 1:02 PM EDT [facility] Eosinophils Absolute 0.13 0.00 - 0.50 K/[facility] LAB HEMETOLOGY METHOD 12/16/2024 1:02 PM EDT [facility] Basophils Absolute 0.04 0.00 - 0.20 K/mcL LAB HEMETOLOGY METHOD 12/16/2024 1:02 PM EDT [facility] Immature Granulocytes Absolute 0.01 0.00 - 0.03 K/mcL LAB HEMETOLOGY METHOD 12/16/2024 1:02 PM EDT [facility] Blood Venous blood specimen / Unknown Venipuncture / Unknown 12/16/2024 9:40 AM EDT 12/16/2024 12:42 PM EDT us Subramkenneth Gallagher MD LAB BLOOD ORDERABLE S Final Result [facility] [address] [place] [address], * Iron and TIBC (12/16/2024 9:40 AM EDT) Iron 82 50 - 160 mcg/dL LAB CHEMISTRY METHOD 12/16/2024 2:30 PM EDT [facility] TIBC 372 250 - 450 mcg/dL LAB CHEMISTRY METHOD 12/16/2024 2:30 PM EDT [facility] Iron Saturation 22 20 - 50 % LAB CHEMISTRY METHOD 12/16/2024 2:30 PM EDT [facility] Blood Venous blood specimen / Unknown Venipuncture / Unknown 12/16/2024 9:40 AM EDT 12/16/2024 12:41 PM EDT us Gilda Gallagher MD LAB BLOOD ORDERABLE S Final Result Performing Organization Address City/[facility]/ZIP Co de Phone Number [facility] [address] [place] [address], [place] [phone] * Ferritin (12/16/2024 9:40 AM EDT) Pathologist [facility] Ferritin 39 26 - 388 ng/mL LAB CHEMISTRY METHOD 12/16/2024 2:30 PM EDT [facility] Blood Venous blood specimen / Unknown Venipuncture / Unknown 12/16/2024 9:40 AM EDT 12/16/2024 12:41 PM EDT us Gilda Gallagher MD LAB BLOOD ORDERABLE S Final Result Performing Organization Address [facility]/ZIP Co de Phone Number [facility] [address] [place] [address], [place] [phone] * (ABNORMAL) Comprehensive metabolic panel (12/16/2024 9:40 AM EDT) Pathologist [facility] Sodium 140 133 - 145 mmol/L LAB CHEMISTRY METHOD 12/16/2024 2:30 PM EDT [facility] Potassium 4.2 3.5 - 5.5 mmol/L LAB CHEMISTRY METHOD 12/16/2024 2:30 PM EDT [facility] Chloride 108 96 - 110 mmol/L LAB CHEMISTRY METHOD 12/16/2024 2:30 PM EDT [facility] CO2 25 21 - 32 mmol/L LAB CHEMISTRY METHOD 12/16/2024 2:30 PM EDT [facility] Anion Gap 7 3 - 11 LAB CHEMISTRY METHOD 12/16/2024 2:30 PM EDT [facility] Glucose 146(H) 70 - 100 mg/dL LAB CHEMISTRY METHOD 12/16/2024 2:30 PM [facility] BUN 13 5 - 25 mg/dL LAB CHEMISTRY METHOD 12/16/2024 2:30 PM [facility] Creatinine 1.06 0.70 - 1.30 mg/dL LAB CHEMISTRY METHOD 12/16/2024 2:30 PM [facility] eGFR 85 >=60 mL/min/1. 73m2 LAB CHEMISTRY METHOD 12/16/2024 2:30 PM [facility] Comment:Calculation based on the Chronic Kidney Disease Epidemiology Collaboration (CKD-EPI) equation refit without adjustment for race. BUN/Creatinine Ratio 12.3 LAB CHEMISTRY METHOD 12/16/2024 2:30 PM [facility] Calcium 8.6 8.5 - 10.5 mg/dL LAB CHEMISTRY METHOD 12/16/2024 2:30 PM [facility] AST (SGOT) 16 10 - 42 unit/L LAB CHEMISTRY METHOD 12/16/2024 2:30 PM [facility] ALT (SGPT) 29 10 - 60 unit/L LAB CHEMISTRY METHOD 12/16/2024 2:30 PM [facility] Alkaline Phosphatase 52 42 - 121 unit/L LAB CHEMISTRY METHOD 12/16/2024 2:30 PM [facility] Total Protein 6.9 6.0 - 8.0 g/dL LAB CHEMISTRY METHOD 12/16/2024 2:30 PM [facility] Albumin 3.5 3.2 - 5.0 g/dL LAB CHEMISTRY METHOD 12/16/2024 2:30 PM [facility] Total Bilirubin 0.5 0.0 - 1.4 mg/dL LAB CHEMISTRY METHOD 12/16/2024 2:30 PM [facility] Blood Venous blood specimen / Unknown Venipuncture / Unknown 12/16/2024 9:40 AM EDT 12/16/2024 12:41 PM EDT us Gilda Gallagher MD LAB BLOOD ORDERABLE S Final Result [facility] [address] [place] [address], [place] [phone] * (ABNORMAL) Lipid panel with reflex to direct LDL (09/25/2024 8:43 AM EDT) Cholesterol 164 0 - 200 mg/dL LAB CHEMISTRY METHOD 09/25/2024 11:40 AM EDT [facility] Triglycerides 123 0 - 150 mg/dL LAB CHEMISTRY METHOD 09/25/2024 11:40 AM EDT [facility] HDL 35(L) >=40 mg/dL LAB CHEMISTRY METHOD 09/25/2024 11:40 AM EDT [facility] LDL Calculated 104(H) 0 - 100 mg/dL LAB CHEMISTRY METHOD 09/25/2024 11:40 AM EDT [facility] VLDL Cholesterol Cody 24.6 mg/dL LAB CHEMISTRY METHOD 09/25/2024 11:40 AM EDT [facility] Non HDL Chol. (LDL+VLDL) 129 <145 mg/dL LAB CHEMISTRY METHOD 09/25/2024 11:40 AM EDT [facility] Chol/HDL Ratio 4.7(H) 0.0 - 4.4 LAB CHEMISTRY METHOD 09/25/2024 11:40 AM EDT [facility] Blood Venous blood specimen / Unknown Venipuncture / Unknown 09/25/2024 8:43 AM EDT 09/25/2024 8:43 AM EDT us Cary Barker LAB BLOOD ORDERABLES Final Resul t [facility] [address] [place] [address], [place] [phone] * FIT-DNA (Cologuard) (08/03/2021) Pathologist [facility] Colorectal Cancer Screening: FIT-DNA (Cologuard) abstracted,no interpretation us Historical Provider HEALTH MAINTENANCE Final Result from Last 3 Months or Most Recently Relevant to Health Maintenance Insurance [facility] PL[facility] Care Teams Lottery Manager Relationship Specialty Start Date End Date Caleb Bird DO [address] [place] [phone] PCP - General Internal Medicine 05/16/17
== END 2025-01-14 09:47 | disposition home or self-care (01) ==
LOC: HO.HSMS 09:07
PROVIDERS: PCP Internal Medicine; Visit Provider Physician Assistant Medical
DX: G47.33 Obstructive sleep apnea (adult) (pediatric) (principal); E66.9 Obesity, unspecified; F41.0 Panic disorder [episodic paroxysmal anxiety]
CPT/HCPCS: 99214

== ENCOUNTER 2025-03-27 09:59 | Outpatient (REF) | payer OTHER, SELFPAY ==
--- OUTSIDE RECORDS SUMMARY | 2025-03-27 10:36 | XMS_ITS | Encounter Summary ---
Author Organization [facility] Address [address] [place] [address] Care Team Providers Care Patent Solicitor Name Role Phone Caleb Bird DO Primary Care Provider [phone] Encounter Details Date Type Department Care Team (Late Contact Info) Description 05/26/2024 Lab Requisition [facility] Lab [address] [facility] [place] [phone] Rachid Benitez MD [address] [address] Benign prostatic hyperplasia without lower urinary tract symptoms Social History Tobacco Use Types Packs/Day Years Used Date Smoking Tobacco: Every Day Cigarettes Smokeless Tobacco: Never Alcohol Use Standard Drinks/Week Comments Yes 0 (1 standard drink = 0.6 oz pur e alcohol) Sex and Gender Information Value Date Recorded Sex Assigned at Not on file Legal Sex Male 3:58 PM EST Gender Identity Not on file Sexual Orientation Not on file documented as of this encounter Plan of Treatment Upcoming Encounters Date Type Department Care Team (Late Contact Info) Description 12/16/2025 9:00 AM EDT Office Visit [facility] Hematology Oncology [address] [place] [phone] Gilda Gallagher MD [address] [place] [address] Scheduled Orders Name Type Priority Associated Diagnoses Orde r Schedule Prostate specific antigen diagnostic Lab Routine Benign prostatic hyperplasia without lower urinary tract symptoms Ordered: 05/27/2024 documented as of this encounter Procedures Procedure Name Priority Date/Time Associated Diagnosis Comments PROSTATE SPECIFIC ANTIGEN DIAGNOSTIC Routine 05/26/2024 9:04 AM EST Benign prostatic hyperplasia without lower urinary tract symptoms documented in this encounter Results * Prostate specific antigen diagnostic (05/26/2024 9:04 AM EST) PSA 3.58 0.00 - 4.00 ng/mL LAB CHEMISTRY METHOD 05/29/2024 7:57 PM EST [facility] Blood Venous blood specimen / Unknown 05/26/2024 9:04 AM EST 05/26/2024 1:05 PM EST Narrative [facility] - 05/29/2024 7:57 PM EST The Siemens Advia [place] Chemiluminescent Immunoassay is used. Results obtained with different assay methods or kits cannot be used interchangeably. Results cannot be interpreted as absolute evidence of the presence or absence of malignant disease. Rachid Benitez MD LAB BLOOD ORDERABLES Final Resul t [facility] [address] [place] [address], documented in this encounter Visit Diagnoses Diagnosis Benign prostatic hyperplasia without lower urinary tract symptoms documented in this encounter Care Teams Patent Solicitor Relationship Specialty Start Date End Date Caleb Bird DO [address] [place] [phone] PCP - General Internal Medicine 05/16/17 documented as of this encounter
--- OUTSIDE RECORDS SUMMARY | 2025-03-27 10:36 | XMS_ITS | Clinical Summary ---
Author Organization [facility] Address [address] [place] [address] Phone Care Team Providers Care Annual Greenhouse Manager Name Role Phone Caleb Bird DO Primary Care Provider [phone] Allergies No known active allergies Medications apixaban (ELIQUIS) 2.5 mg tablet Take 1 tablet (2.5 mg total) by mouth 2 (two) times a day. Active propranoloL (INDERAL) 40 mg tablet Take 1 tablet (40 mg total) by mouth 3 (three) times a day. Active Active Problems Problem Noted Date Diagnosed Date Nephrolithiasis 12/16/2020 Prothrombin gene mutation ([facility] V24) 12/25/19 20 Pulmonary embolus ([facility] V24, [facility] V28) Hereditary hemochromatosis ([facility] V24) 017 Surgical History Surgery Date Site/Laterality Comments APPENDECTOMY PROCEDURE:APPENDECTOMY Medical History Medical History Date Comments Hemochromatosis DX:Hemochromatos is DVT (deep venous thrombosis) ([facility]/HCC V24, CMS/HCC V28) DX:DVT (deep venous thrombos is) (HCC) Hereditary hemochromatosis ( [facility]/HCC V24) 05/16/2017 DX:Hereditary hemochromatosi s (HCC) Family [...] Description 12/16/2025 9:00 AM EDT Office Visit [facility] Hematology Oncology [address] [place] [address] Gilda Gallagher MD [address] [place] [address] Health Maintenance Due Date Last Done Comments DTaP,Tdap,and Td Vaccines (1 - Tdap) 1992 Hepatitis B Vaccines (1 of 3 - 19+ 3-dose series) 1992 Pneumococcal Vaccine: 50+ Years (1 of 2 - PCV) 1992 HIV Screening 06/18/2022 Hepatitis C Screening 06/18/2022 Social Influencers of Health Screening 06/18/2022 Zoster Vaccines (1 of 2) 2023 Depression Screening 07/09/2024 COVID-19 Vaccine ( season) 2025 07/26/2021, 11/08/2020, 10/18/2020 Influenza Vaccine (#1) 2025 [...] Procedure Name Priority Date/Time Associated Diagnosis Comments COMPREHENSIVE METABOLIC PANEL Routine 12/16/2024 9:40 AM EDT Hereditary hemochromatosis ([facility] V24) LIPID PANEL WITH REFLEX TO DIRECT LDL Routine 09/25/2024 8:43 AM EDT HTN (hypertension) HLD (hyperlipidemia) Obesity DVT (deep vein thrombosis) in PE (physical exam), annual DM2 (diabetes mellitus, type 2) (CMS/HCC V24, CMS/HCC V28) FIT-DNA Routine 08/03/2021 from Last 3 Months or Most Recently Relevant to Health Maintenance Results * (ABNORMAL) Comprehensive metabolic panel (12/16/2024 9:40 AM EDT) Sodium 140 133 - 145 mmol/L LAB CHEMISTRY METHOD 12/16/2024 2:[address] [facility] Potassium 4.2 3.5 - 5.5 mmol/L LAB CHEMISTRY METHOD 12/16/2024 2:[address] [facility] Chloride 108 96 - 110 mmol/L LAB CHEMISTRY METHOD 12/16/2024 2:30 PM [facility] CO2 25 21 - 32 mmol/L LAB CHEMISTRY METHOD 12/16/2024 2:30 PM [facility] Anion Gap 7 3 - 11 LAB CHEMISTRY METHOD 12/16/2024 2:30 PM [facility] Glucose 146(H) 70 - 100 mg/dL LAB CHEMISTRY METHOD 12/16/2024 2:30 PM [facility] BUN 13 5 - 25 mg/dL LAB CHEMISTRY METHOD 12/16/2024 2:30 PM [facility] Creatinine 1.06 0.70 - 1.30 mg/dL LAB CHEMISTRY METHOD 12/16/2024 2:30 PM [facility] eGFR 85 >=60 mL/min/1. 73m2 LAB CHEMISTRY METHOD 12/16/2024 2:30 PM [facility] Comment:Calculation based on the Chronic Kidney Disease Epidemiology Collaboration (CKD-EPI) equation refit without adjustment for race. BUN/Creatinine Ratio 12.3 LAB CHEMISTRY METHOD 12/16/2024 2:30 PM [facility] Calcium 8.6 8.5 - 10.5 mg/dL LAB CHEMISTRY METHOD 12/16/2024 2:30 PM [facility] AST (SGOT) 16 10 - 42 unit/L LAB CHEMISTRY METHOD 12/16/2024 2:30 PM [facility] ALT (SGPT) 29 10 - 60 unit/L LAB CHEMISTRY METHOD 12/16/2024 2:30 PM [facility] Alkaline Phosphatase 52 42 - 121 unit/L LAB CHEMISTRY METHOD 12/16/2024 2:30 PM [facility] Total Protein 6.9 6.0 - 8.0 g/dL LAB CHEMISTRY METHOD 12/16/2024 2:30 PM [facility] Albumin 3.5 3.2 - 5.0 g/dL LAB CHEMISTRY METHOD 12/16/2024 2:[address] [facility] Total Bilirubin 0.5 0.0 - 1.4 mg/dL LAB CHEMISTRY METHOD 12/16/2024 2:[address] [facility] Blood Venous blood specimen / Unknown Venipuncture / Unknown 12/16/2024 9:40 AM EDT 12/16/2024 12:41 PM EDT Gilda Gallagher MD LAB BLOOD ORDERABLE S Final Result [facility] [address] [place] [address], [place] [phone] * (ABNORMAL) Lipid panel with reflex to direct LDL (09/25/2024 8:43 AM EDT) Cholesterol 164 0 - 200 mg/dL LAB CHEMISTRY METHOD 09/25/2024 11:40 AM [facility] Triglycerides 123 0 - 150 mg/dL LAB CHEMISTRY METHOD 09/25/2024 11:40 AM [facility] HDL 35(L) >=40 mg/dL LAB CHEMISTRY METHOD 09/25/2024 11:40 AM [facility] LDL Calculated 104(H) 0 - 100 mg/dL LAB CHEMISTRY METHOD 09/25/2024 11:40 AM [facility] VLDL Cholesterol Cody 24.6 mg/dL LAB CHEMISTRY METHOD 09/25/2024 11:[address] [facility] Non HDL Chol. (LDL+VLDL) 129 <145 mg/dL LAB CHEMISTRY METHOD 09/25/2024 11:40 AM [facility] Chol/HDL Ratio 4.7(H) 0.0 - 4.4 LAB CHEMISTRY METHOD 09/25/2024 11:40 AM [facility] Blood Venous blood specimen / Unknown Venipuncture / Unknown 09/25/2024 8:43 AM EDT 09/25/2024 8:43 AM EDT [facility] Final [facility]ul t [facility] [address] [place] [address], * FIT-DNA (Cologuard) (08/03/2021) Pathologist [facility] Colorectal Cancer Screening: FIT-DNA (Cologuard) abstracted,no interpretation Historical Provider HEALTH MAINTENANCE Final Result from Last 3 Months or Most Recently Relevant to Health Maintenance Insurance [facility] Care Teams Annual Greenhouse Manager Relationship Specialty Start Date End Date Caleb Bird DO [address] [place] [address] [phone] PCP - General Internal Medicine 05/16/17
--- OUTSIDE RECORDS SUMMARY | 2025-03-27 10:36 | XMS_ITS | Clinical Summary ---
Author Organization [facility] Address [address] [place] [address] Care Team Providers Care Tiger Machine Operator Name Role Phone Caleb Bird DO Primary Care Provider [phone] Allergies No known active allergies Medications Medication [...] age to complete this topic Care Teams Tiger Machine Operator Relationship Specialty Start Date End Date Caleb Bird DO [address] [place] [address] [address] [place] [address] PCP - General Internal Medicine 05/16/17
== END 2025-03-27 10:00 | disposition home or self-care (01) ==
LOC: HO.BBR 09:59
PROVIDERS: PCP Internal Medicine; Visit Provider Internal Medicine
DX: Z13.89 Encounter for screening for other disorder (principal)